=== PATIENT | female | born 1945 | race Caucasian/White ===

== ENCOUNTER 2022-09-28 17:49 | Inpatient (IN) | payer OTHER ==
[~2022-09-28] VITALS: Ht 152.4 cm; Wt 59.8 kg
[2022-09-28] VITALS (19 sets, daily range): BP systolic 101–129; BP diastolic 52–75; PULSE 93–120; RESP 8–22; TEMP 96.7–98.6; O2SAT 95–100
[2022-09-28] MEDS ORDERED: ANGIOMAX 250 MG VIAL IV ONE (17:59)
[2022-09-28] MEDS ORDERED: VERAPAMIL 2.5MG/ML INJ 2ML VIAL IV ONE (17:59)
[2022-09-28] MEDS ORDERED: LIDOCAINE 1% HCL (LOCAL ANESTH.) INJ 20ML MDV ONE (17:59)
[2022-09-28] MEDS ORDERED: fentaNYL CITRATE 100 MCG/2 ML VL ONE (17:59)
[2022-09-28] MEDS ORDERED: SODIUM CHL 0.9% 50 ML ONE (18:00)
[2022-09-28] MEDS ORDERED: MIDAZOLAM HCL 2MG/2ML 2ml VIAL (1mg/ml) ONE (18:00)
[2022-09-28] MEDS ORDERED: LIDOCAINE 2%HCL (LOCAL ANESTH.) INJ 20ML MDV ONE (18:01)
[2022-09-28] MEDS ORDERED: IODIXANOL 320MG/ML 100ML BTL IV ONE ×3 (18:01→19:02)
[2022-09-28] MEDS ORDERED: NOREPINEPHRINE 8 MG/250ML KIT 0 ML IV ONE (18:09)
[2022-09-28] MEDS ORDERED: NOREPINEPHRINE 8 MG/250ML KIT 250 ML IV ONE (18:10)
[2022-09-28] MEDS ORDERED: NOREPINEPHRINE 8 MG/250ML KIT 250 ML IV SCH ×2 (18:15→18:30)
[2022-09-28] MEDS ORDERED: SODIUM CHLORIDE 0.9% 1,000 ML IV ONE (18:15)
[2022-09-28] MEDS: MIDAZOLAM DRIP 50 mg/50mL 50 ML IV SCH (18:18)
[2022-09-28] MEDS ORDERED: MIDAZOLAM DRIP 50 mg/50mL 50 ML IV ONE (18:20)
[2022-09-28 18:38] LABS: Basophils # (auto) 0.1 10 ^3/uL (0-0.2); Basophils % (auto) 0.4 % (0.0-2.0); Eosinophils # (auto) 0.1 10 ^3/uL (0-0.8); Eosinophils % (auto) 0.6 % (0.0-7.0); Hematocrit 31.2 % (36.0-46.0); Hemoglobin 10.4 g/dL (12.2-16.2); Lymphocytes # (auto) 5.2 10 ^3/uL (0.4-5.4); Lymphocytes % (auto) 30.6 % (10.0-50.0); Mean Corpuscular Hemoglobin 29.1 pg (28.0-32.0); Mean Corpuscular Hgb Conc. 33.5 g/dL (32.0-36.0); Mean Corpuscular Volume 86.8 fL (80.0-100.0); Monocytes # (auto) 0.9 10 ^3/uL (0-1.3); Monocytes % (auto) 5.1 % (0.0-12.0); Neutrophils # (auto) 10.8 10 ^3/uL (1.6-8.6); Neutrophils % (auto) 63.3 % (37.0-80.0); Nucleated Red Blood Cells % 0.1 %; Red Blood Cells 3.59 10^6/uL (4.0-5.20); Red Cell Distribution Width 12.9 % (11.8-14.3)
[2022-09-28] MEDS ORDERED: HEPARIN SODIUM (PORCINE) 5000 UNITS/ML 1ML VIAL ONE ×2 (18:50→19:05)
[2022-09-28] MEDS ORDERED: SODIUM BICARBONATE 8.4 % INJ 50ML VIAL IV ONE (19:00)
[2022-09-28 19:03] LABS: Albumin 2.7 g/dL (3.4-5.0); Calcium 7.9 mg/dL (8.5-10.1)
[2022-09-28 19:07] LABS: BUN/Creatinine Ratio 23.8 (10.0-20.0); Bilirubin, Total 0.4 mg/dL (0.2-1.0); Total Protein 5.8 g/dL (6.4-8.2)
[2022-09-28 19:10] LABS: INR 1.3 (0.9-1.15); Partial Thromboplastin Time 27.6 SEC (24.5-34.5)
[2022-09-28] MEDS ORDERED: TICAGRELOR 90 MG TAB ONE (19:39)
[2022-09-28] MEDS ORDERED: MORPHINE SULFATE INJ 2 MG/ml SYRG IV PRN (19:45)
[2022-09-28] MEDS ORDERED: NITROGLYCERIN 0.4 MG SL TAB SL PRN (19:45)
[2022-09-28] MEDS ORDERED: fentaNYL Drip 2500mCg/250mlNS 250 ML IV ONE (20:48)
[2022-09-28] MEDS: POTASSIUM CHLORIDE 40 MEQ in SOD CHL 0.45% 1,000 ML IV SCH (20:59)
[2022-09-28] MEDS: fentaNYL Drip 2500mCg/250mlNS 250 ML IV SCH (21:00)
[2022-09-28] MEDS ORDERED: GABA-1250 PO (22:44)
[2022-09-28] MEDS ORDERED: LOSA50TA46 PO (22:44)
[2022-09-28] MEDS ORDERED: GLIP5TAB12 PO (22:44)
[2022-09-28] MEDS ORDERED: SIMV40TA18 PO (22:44)
[2022-09-29] VITALS (104 sets, daily range): BP systolic 76–196; BP diastolic 23–160; PULSE 60–110; RESP 9–23; TEMP 97–98.6; O2SAT 69–100
[2022-09-29] MEDS ORDERED: MEROPENEM 1GM IVPB 100 ML IV SCH
[2022-09-29] MEDS ORDERED: SODIUM CHLORIDE 0.9% 500 ML IV ONE (01:15)
[2022-09-29] MEDS ORDERED: SODIUM CHLORIDE 0.9% 2,000 ML IV ONE (01:30)
[2022-09-29 02:19] LABS: Hematocrit 34.1 % (36.0-46.0); Hemoglobin 11.2 g/dL (12.2-16.2); Mean Corpuscular Hemoglobin 29.6 pg (28.0-32.0); Mean Corpuscular Hgb Conc. 32.8 g/dL (32.0-36.0); Mean Corpuscular Volume 90.4 fL (80.0-100.0); Red Blood Cells 3.77 10^6/uL (4.0-5.20); Red Cell Distribution Width 13.4 % (11.8-14.3); White Blood Cell 25.7 10^3/uL (4.4-10.8)
[2022-09-29 02:33] LABS: BUN/Creatinine Ratio 28.9 (10.0-20.0); Calcium 7.5 mg/dL (8.5-10.1); Potassium 3.5 mmol/L (3.5-5.1)
[2022-09-29 02:37] LABS: INR 1.23 (0.9-1.15)
[2022-09-29 02:43] LABS: Basophils % (manual) 0 (0.0-2.0); Blast Cells 0; Eosinophils % (manual) 0 (0-7); Metamyelocytes % 0; Myelocytes % 0; Promyelocytes % 0; Reactive Lymphocytes 0
[2022-09-29 03:28] LABS: Band Neutrophils % (manual) 15; Lymphocytes % (manual) 3 (10.0-50.0); Monocytes % (manual) 3 (0-12)
[2022-09-29 08:22] LABS: Basophils # (auto) 0 10 ^3/uL (0-0.2); Basophils % (auto) 0.1 % (0.0-2.0); Eosinophils # (auto) 0 10 ^3/uL (0-0.8); Hematocrit 33.2 % (36.0-46.0); Hemoglobin 10.8 g/dL (12.2-16.2); Lymphocytes # (auto) 0.9 10 ^3/uL (0.4-5.4); Lymphocytes % (auto) 4.9 % (10.0-50.0); Mean Corpuscular Hemoglobin 29.5 pg (28.0-32.0); Mean Corpuscular Hgb Conc. 32.6 g/dL (32.0-36.0); Mean Corpuscular Volume 90.7 fL (80.0-100.0); Monocytes # (auto) 1.3 10 ^3/uL (0-1.3); Monocytes % (auto) 6.8 % (0.0-12.0); Neutrophils # (auto) 17.2 10 ^3/uL (1.6-8.6); Neutrophils % (auto) 88.2 % (37.0-80.0); Red Blood Cells 3.66 10^6/uL (4.0-5.20); Red Cell Distribution Width 13.4 % (11.8-14.3); White Blood Cell 19.5 10^3/uL (4.4-10.8)
[2022-09-29 09:18] LABS: Potassium 3.7 mmol/L (3.5-5.1)
[2022-09-29 09:28] LABS: Albumin 2.8 g/dL (3.4-5.0); Bilirubin, Total 0.6 mg/dL (0.2-1.0); Calcium 7.7 mg/dL (8.5-10.1); Total Protein 5.6 g/dL (6.4-8.2)
[2022-09-29] MEDS: PHENYLEPHRINE IV 250 ML IV SCH ×2 (09:50→17:53)
[2022-09-29] MEDS: TICAGRELOR 90 MG TAB PO SCH ×3 (10:00→22:29)
[2022-09-29] MEDS ORDERED: VANCOMYCIN PER PHARMACY 0 MG IV SCH (10:15)
[2022-09-29] MEDS ORDERED: VANCOMYCIN 1GM/250ML 250 ML IV ONE (10:30)
[2022-09-29] MEDS: ASPirin 81 mg TAB PO SCH (11:19)
[2022-09-29] MEDS ORDERED: MEROPENEM 1GM IVPB 100 ML IV ONE (12:00)
[2022-09-29] MEDS: VASOPRESSIN 20 UNITS in SODIUM CHL 0.9% 99 ML IV SCH ×2 (12:37→23:44)
[2022-09-29] MEDS ORDERED: EPINEPHrine HCL 1 MG/10 ML SYRG IV ONE (12:54)
[2022-09-29] MEDS ORDERED: SODIUM BICARBONATE 8.4% INJ 50ML SYRINGE IV ONE (12:54)
[2022-09-29] MEDS ORDERED: D5W 5% 100 ML BAG IV ONE (12:54)
[2022-09-29] MEDS ORDERED: DEXTROSE (50%) 50ML SYRG IV ONE (12:54)
[2022-09-29] MEDS: POTASSIUM CHLORIDE 40 MEQ in SOD CHL 0.45% 1,000 ML IV SCH ×2 (16:31→16:54)
[2022-09-29] MEDS ORDERED: NOREPINEPHRINE 8 MG/250ML KIT 250 ML IV SCH (17:15)
[2022-09-29] MEDS ORDERED: DEXTROSE (50%) 50ML SYRG IV PRN (17:15)
[2022-09-29] MEDS: ACCU-CHEK COMFORT CURVE STRIP VI SCH (17:51)
[2022-09-29] MEDS: InsuLIN REG 1unit/0.01ml Soln (100units/ml) SC SCH (17:52)
[2022-09-29] MEDS: MIDAZOLAM DRIP 50 mg/50mL 50 ML IV SCH (19:00)
[2022-09-29] MEDS: fentaNYL Drip 2500mCg/250mlNS 250 ML IV SCH (20:45)
[2022-09-29 22:43] LABS: Folate (Folic Acid) 16.33 ng/mL (5.38-24)
[2022-09-30] VITALS (88 sets, daily range): BP systolic 48–172; BP diastolic 26–142; PULSE 61–130; RESP 10–33; TEMP 98.6–99.6; O2SAT 90–100
[2022-09-30] MEDS: MEROPENEM 1GM IVPB 100 ML IV SCH ×2 (00:24→14:41)
[2022-09-30] MEDS: ACCU-CHEK COMFORT CURVE STRIP VI SCH ×4 (00:24→18:11)
[2022-09-30] MEDS: InsuLIN REG 1unit/0.01ml Soln (100units/ml) SC SCH ×4 (00:32→18:12)
[2022-09-30] MEDS: PHENYLEPHRINE IV 250 ML IV SCH ×2 (02:30→10:50)
[2022-09-30] MEDS: POTASSIUM CHLORIDE 40 MEQ in SOD CHL 0.45% 1,000 ML IV SCH ×2 (03:43→15:16)
[2022-09-30 04:39] LABS: Basophils # (auto) 0 10 ^3/uL (0-0.2); Basophils % (auto) 0.2 % (0.0-2.0); Eosinophils # (auto) 0 10 ^3/uL (0-0.8); Eosinophils % (auto) 0.1 % (0.0-7.0); Hematocrit 27.7 % (36.0-46.0); Hemoglobin 9.4 g/dL (12.2-16.2); Lymphocytes # (auto) 1.7 10 ^3/uL (0.4-5.4); Lymphocytes % (auto) 9.4 % (10.0-50.0); Mean Corpuscular Hemoglobin 30.1 pg (28.0-32.0); Mean Corpuscular Volume 88.6 fL (80.0-100.0); Monocytes # (auto) 1.5 10 ^3/uL (0-1.3); Monocytes % (auto) 8.8 % (0.0-12.0); Neutrophils # (auto) 14.4 10 ^3/uL (1.6-8.6); Neutrophils % (auto) 81.5 % (37.0-80.0); Red Blood Cells 3.12 10^6/uL (4.0-5.20); Red Cell Distribution Width 13.7 % (11.8-14.3); White Blood Cell 17.7 10^3/uL (4.4-10.8)
[2022-09-30 04:43] LABS: Albumin 2.5 g/dL (3.4-5.0); Calcium 7.5 mg/dL (8.5-10.1); Potassium 3.9 mmol/L (3.5-5.1)
[2022-09-30 04:47] LABS: Bilirubin, Total 0.6 mg/dL (0.2-1.0); Total Protein 5.7 g/dL (6.4-8.2)
[2022-09-30] MEDS ORDERED: ONDANSETRON HCL 4 MG/2 ML VIAL ONE (05:37)
[2022-09-30] MEDS: ONDANSETRON HCL 4 MG/2 ML VIAL IV PRN ×3 (06:52→19:26)
[2022-09-30] MEDS ORDERED: IOHEXOL 350 MG/ML 100ML IJ ONE (07:41)
[2022-09-30] MEDS: TICAGRELOR 90 MG TAB PO SCH ×4 (10:00→22:30)
[2022-09-30] MEDS: ASPirin 81 mg TAB PO SCH (10:00)
[2022-09-30] MEDS: METOCLOPRAMIDE HCL 5MG/ml INJ 2ml VIAL IV SCH ×3 (11:13→22:32)
[2022-09-30] MEDS ORDERED: hydrALAZINE HCL 20 MG/ML VL IV PRN (13:15)
[2022-09-30] MEDS: VANCOMYCIN 1GM/250ML 250 ML IV SCH (13:45)
[2022-09-30] MEDS: LORazepam 2MG/ML-1ML VIAL IV PRN ×2 (16:56→23:12)
[2022-09-30] MEDS ORDERED: NOREPINEPHRINE 8 MG/250ML KIT 250 ML IV SCH (18:00)
[2022-09-30] MEDS: NOREPINEPHRINE 8 MG/250ML KIT 250 ML IV SCH (18:00)
[2022-09-30] MEDS: METOPROLOL TARTRATE 25 MG TAB PO SCH (22:00)
[2022-09-30] MEDS: CEFEPIME 2GM/50ML NS 50 ML IV SCH (22:49)
[2022-09-30] MEDS: POTASSIUM CHL 20MEQ/100ML 100 ML IV SCH (22:49)
[2022-09-30] MEDS ORDERED: SOD CHL 0.45% 1,000 ML IV SCH (23:00)
[2022-09-30] MEDS ORDERED: CYANOCOBALAMIN (B-12) 1000 MCG/1 ML VIAL IM ONE (23:00)
[2022-10-01] VITALS (99 sets, daily range): BP systolic 62–180; BP diastolic 27–117; PULSE 66–123; RESP 8–28; TEMP 97.4–97.8; O2SAT 75–100
[2022-10-01] MEDS: InsuLIN REG 1unit/0.01ml Soln (100units/ml) SC SCH ×4 (00:23→17:44)
[2022-10-01] MEDS: ACCU-CHEK COMFORT CURVE STRIP VI SCH ×4 (00:29→17:37)
[2022-10-01] MEDS: NOREPINEPHRINE 8 MG/250ML KIT 250 ML IV SCH ×2 (03:07→19:17)
[2022-10-01] MEDS: ONDANSETRON HCL 4 MG/2 ML VIAL IV PRN (03:40)
[2022-10-01 03:57] LABS: Basophils # (auto) 0 10 ^3/uL (0-0.2); Basophils % (auto) 0.2 % (0.0-2.0); Eosinophils # (auto) 0 10 ^3/uL (0-0.8); Eosinophils % (auto) 0.1 % (0.0-7.0); Hematocrit 27.8 % (36.0-46.0); Hemoglobin 9.2 g/dL (12.2-16.2); Lymphocytes # (auto) 1.1 10 ^3/uL (0.4-5.4); Lymphocytes % (auto) 5.9 % (10.0-50.0); Mean Corpuscular Hemoglobin 29.4 pg (28.0-32.0); Mean Corpuscular Hgb Conc. 33.2 g/dL (32.0-36.0); Mean Corpuscular Volume 88.4 fL (80.0-100.0); Monocytes # (auto) 1.3 10 ^3/uL (0-1.3); Monocytes % (auto) 6.9 % (0.0-12.0); Neutrophils # (auto) 15.9 10 ^3/uL (1.6-8.6); Neutrophils % (auto) 86.9 % (37.0-80.0); Red Blood Cells 3.14 10^6/uL (4.0-5.20); Red Cell Distribution Width 13.5 % (11.8-14.3); White Blood Cell 18.3 10^3/uL (4.4-10.8)
[2022-10-01] MEDS: POTASSIUM CHL 20MEQ/100ML 100 ML IV SCH (04:42)
[2022-10-01] MEDS: METOCLOPRAMIDE HCL 5MG/ml INJ 2ml VIAL IV SCH ×3 (06:29→21:37)
[2022-10-01] MEDS: SODIUM CHLORIDE 0.9% 1,000 ML IV SCH (08:15)
[2022-10-01 08:46] LABS: Basophils # (auto) 0 10 ^3/uL (0-0.2); Basophils % (auto) 0.2 % (0.0-2.0); Eosinophils # (auto) 0 10 ^3/uL (0-0.8); Eosinophils % (auto) 0.1 % (0.0-7.0); Hematocrit 28.4 % (36.0-46.0); Hemoglobin 9.4 g/dL (12.2-16.2); Lymphocytes # (auto) 1.1 10 ^3/uL (0.4-5.4); Lymphocytes % (auto) 6.3 % (10.0-50.0); Mean Corpuscular Hemoglobin 29.5 pg (28.0-32.0); Mean Corpuscular Hgb Conc. 33.1 g/dL (32.0-36.0); Monocytes # (auto) 1.2 10 ^3/uL (0-1.3); Monocytes % (auto) 7.2 % (0.0-12.0); Neutrophils # (auto) 14.4 10 ^3/uL (1.6-8.6); Neutrophils % (auto) 86.2 % (37.0-80.0); Nucleated Red Blood Cells % 0.1 %; Red Blood Cells 3.19 10^6/uL (4.0-5.20); Red Cell Distribution Width 13.2 % (11.8-14.3); White Blood Cell 16.7 10^3/uL (4.4-10.8)
[2022-10-01] MEDS ORDERED: methylPREDNISolone SOD SUCC 125 MG/2 ML VL ONE (08:47)
[2022-10-01] MEDS ORDERED: ANGIOMAX 250 MG VIAL IV ONE (08:47)
[2022-10-01] MEDS ORDERED: fentaNYL CITRATE 100 MCG/2 ML VL ONE (08:48)
[2022-10-01] MEDS ORDERED: diphenhdrAMINE HCL 50 MG/1 ML VL ONE (08:48)
[2022-10-01] MEDS ORDERED: HEPARIN SODIUM (PORCINE) 5000 UNITS/ML 1ML VIAL ONE (08:48)
[2022-10-01] MEDS ORDERED: VERAPAMIL 2.5MG/ML INJ 2ML VIAL IV ONE (08:48)
[2022-10-01] MEDS ORDERED: MIDAZOLAM HCL 2MG/2ML 2ml VIAL (1mg/ml) ONE (08:49)
[2022-10-01] MEDS ORDERED: SODIUM CHL 0.9% 50 ML ONE (08:49)
[2022-10-01] MEDS ORDERED: IODIXANOL 320MG/ML 100ML BTL IV ONE (08:49)
[2022-10-01] MEDS ORDERED: FAMOTIDINE (10MG/ML) 2ML VL IV ONE (08:49)
[2022-10-01] MEDS ORDERED: LIDOCAINE 2%HCL (LOCAL ANESTH.) INJ 10ml MDV ONE (08:49)
[2022-10-01 08:57] LABS: Albumin 2.7 g/dL (3.4-5.0); Calcium 8.5 mg/dL (8.5-10.1); Potassium 4.9 mmol/L (3.5-5.1)
[2022-10-01 08:59] LABS: BUN/Creatinine Ratio 14.8 (10.0-20.0); Bilirubin, Total 0.9 mg/dL (0.2-1.0); Total Protein 6.2 g/dL (6.4-8.2)
[2022-10-01 09:00] LABS: INR 1.24 (0.9-1.15); Partial Thromboplastin Time 32.1 SEC (24.5-34.5)
[2022-10-01] MEDS ORDERED: POTASSIUM CHLORIDE 40 MEQ in SOD CHL 0.45% 1,000 ML IV SCH (09:00)
[2022-10-01] MEDS: ASPirin 81 mg TAB PO SCH (10:00)
[2022-10-01] MEDS: TICAGRELOR 90 MG TAB PO SCH ×2 (10:00→21:38)
[2022-10-01] MEDS ORDERED: ASPirin 325 MG TAB ONE (10:11)
[2022-10-01] MEDS ORDERED: TICAGRELOR 90 MG TAB ONE (10:11)
[2022-10-01] MEDS: METOPROLOL TARTRATE 25 MG TAB PO SCH ×2 (11:31→21:38)
[2022-10-01] MEDS: CEFEPIME 2GM/50ML NS 50 ML IV SCH ×2 (11:32→21:38)
[2022-10-01] MEDS: PANTOPRAZOLE 40 MG/10 ML VIAL INJ IV SCH (11:44)
[2022-10-01 12:09] LABS: Basophils # (auto) 0 10 ^3/uL (0-0.2); Basophils % (auto) 0.2 % (0.0-2.0); Eosinophils # (auto) 0 10 ^3/uL (0-0.8); Eosinophils % (auto) 0.1 % (0.0-7.0); Hematocrit 28.6 % (36.0-46.0); Hemoglobin 9.4 g/dL (12.2-16.2); Lymphocytes # (auto) 1.2 10 ^3/uL (0.4-5.4); Lymphocytes % (auto) 7.6 % (10.0-50.0); Mean Corpuscular Hemoglobin 29.4 pg (28.0-32.0); Mean Corpuscular Hgb Conc. 32.7 g/dL (32.0-36.0); Mean Corpuscular Volume 89.9 fL (80.0-100.0); Monocytes % (auto) 6.8 % (0.0-12.0); Neutrophils # (auto) 12.9 10 ^3/uL (1.6-8.6); Neutrophils % (auto) 85.3 % (37.0-80.0); Red Blood Cells 3.19 10^6/uL (4.0-5.20); Red Cell Distribution Width 13.4 % (11.8-14.3); White Blood Cell 15.2 10^3/uL (4.4-10.8)
[2022-10-01 12:32] LABS: Albumin 2.6 g/dL (3.4-5.0); BUN/Creatinine Ratio 15.4 (10.0-20.0); Calcium 8.3 mg/dL (8.5-10.1); Potassium 4.4 mmol/L (3.5-5.1)
[2022-10-01 12:40] LABS: Bilirubin, Total 0.9 mg/dL (0.2-1.0); Total Protein 5.9 g/dL (6.4-8.2)
[2022-10-01] MEDS: VANCOMYCIN 1GM/250ML 250 ML IV SCH (12:55)
[2022-10-01] MEDS ORDERED: HEPARIN DRIP/D5W 100UNITS/ML 250 ML IV SCH (16:30)
[2022-10-01] MEDS: LORazepam 2MG/ML-1ML VIAL IV PRN (20:54)
[2022-10-02] VITALS (98 sets, daily range): BP systolic 57–158; BP diastolic 21–109; PULSE 76–134; RESP 9–26; TEMP 98–99.3; O2SAT 93–100
[2022-10-02] MEDS: ACCU-CHEK COMFORT CURVE STRIP VI SCH ×4 (00:31→17:01)
[2022-10-02] MEDS ORDERED: HEPARIN DRIP/D5W 100UNITS/ML 250 ML IV SCH ×2 (02:00→10:15)
[2022-10-02 04:00] LABS: Basophils # (auto) 0 10 ^3/uL (0-0.2); Basophils % (auto) 0.3 % (0.0-2.0); Eosinophils # (auto) 0 10 ^3/uL (0-0.8); Eosinophils % (auto) 0.2 % (0.0-7.0); Hematocrit 29.2 % (36.0-46.0); Hemoglobin 9.8 g/dL (12.2-16.2); Lymphocytes # (auto) 1.2 10 ^3/uL (0.4-5.4); Lymphocytes % (auto) 8.8 % (10.0-50.0); Mean Corpuscular Hemoglobin 29.7 pg (28.0-32.0); Mean Corpuscular Hgb Conc. 33.5 g/dL (32.0-36.0); Mean Corpuscular Volume 88.6 fL (80.0-100.0); Monocytes # (auto) 1.1 10 ^3/uL (0-1.3); Neutrophils # (auto) 11.6 10 ^3/uL (1.6-8.6); Neutrophils % (auto) 82.7 % (37.0-80.0); Red Blood Cells 3.29 10^6/uL (4.0-5.20)
[2022-10-02 04:17] LABS: Potassium 3.6 mmol/L (3.5-5.1)
[2022-10-02 04:23] LABS: BUN/Creatinine Ratio 19.6 (10.0-20.0)
[2022-10-02] MEDS: SODIUM CHLORIDE 0.9% 1,000 ML IV SCH (05:11)
[2022-10-02] MEDS: METOCLOPRAMIDE HCL 5MG/ml INJ 2ml VIAL IV SCH ×3 (05:35→21:26)
[2022-10-02] MEDS: InsuLIN REG 1unit/0.01ml Soln (100units/ml) SC SCH ×4 (05:40→17:05)
[2022-10-02 09:09] LABS: INR 1.3 (0.9-1.15)
[2022-10-02 09:12] LABS: Partial Thromboplastin Time 129.8 SEC (24.5-34.5)
[2022-10-02] MEDS: TICAGRELOR 90 MG TAB PO SCH ×2 (10:35→21:27)
[2022-10-02] MEDS: cefTRIAXone 1GM/50ML D5W 50 ML IV SCH (10:35)
[2022-10-02] MEDS: METOPROLOL TARTRATE 25 MG TAB PO SCH ×2 (10:35→21:27)
[2022-10-02] MEDS: ASPirin 81 mg TAB PO SCH (10:35)
[2022-10-02] MEDS: PANTOPRAZOLE 40 MG/10 ML VIAL INJ IV SCH (10:47)
[2022-10-02] MEDS: POTASSIUM CHL 20MEQ/100ML 100 ML IV SCH ×2 (12:02→14:22)
[2022-10-02] MEDS: VANCOMYCIN 1GM/250ML 250 ML IV SCH (12:26)
[2022-10-02] MEDS: ENOXAPARIN SOD 80 MG/0.8ML SYRINGE SC SCH ×2 (13:19→21:26)
[2022-10-02] MEDS: LEVALBUTEROL HCL 1.25 MG/3 ML NEB NEB SCH (18:57)
[2022-10-02] MEDS: LORazepam 2MG/ML-1ML VIAL IV PRN (21:26)
[2022-10-02] MEDS: ATORVASTATIN 20 MG TAB PO SCH (21:27)
[2022-10-03] VITALS (100 sets, daily range): BP systolic 71–164; BP diastolic 30–101; PULSE 79–125; RESP 10–28; TEMP 97.7–98.8; O2SAT 84–100
[2022-10-03] MEDS: ACCU-CHEK COMFORT CURVE STRIP VI SCH ×5 (00:16→23:32)
[2022-10-03] MEDS: InsuLIN REG 1unit/0.01ml Soln (100units/ml) SC SCH ×5 (00:17→23:38)
[2022-10-03] MEDS: LEVALBUTEROL HCL 1.25 MG/3 ML NEB NEB SCH ×4 (00:30→18:59)
[2022-10-03] MEDS: NOREPINEPHRINE 8 MG/250ML KIT 250 ML IV SCH ×2 (01:38→10:58)
[2022-10-03] MEDS ORDERED: VANCOMYCIN 1GM/250ML 250 ML IV SCH (02:00)
[2022-10-03 04:43] LABS: Basophils # (auto) 0.1 10 ^3/uL (0-0.2); Basophils % (auto) 0.4 % (0.0-2.0); Eosinophils # (auto) 0.1 10 ^3/uL (0-0.8); Eosinophils % (auto) 0.5 % (0.0-7.0); Hematocrit 27.6 % (36.0-46.0); Hemoglobin 9.3 g/dL (12.2-16.2); Lymphocytes # (auto) 1.3 10 ^3/uL (0.4-5.4); Lymphocytes % (auto) 8.8 % (10.0-50.0); Mean Corpuscular Hemoglobin 29.8 pg (28.0-32.0); Mean Corpuscular Hgb Conc. 33.5 g/dL (32.0-36.0); Mean Corpuscular Volume 88.9 fL (80.0-100.0); Monocytes # (auto) 1.5 10 ^3/uL (0-1.3); Monocytes % (auto) 10.4 % (0.0-12.0); Neutrophils # (auto) 11.6 10 ^3/uL (1.6-8.6); Neutrophils % (auto) 79.9 % (37.0-80.0); Red Blood Cells 3.11 10^6/uL (4.0-5.20); Red Cell Distribution Width 13.1 % (11.8-14.3); White Blood Cell 14.5 10^3/uL (4.4-10.8)
[2022-10-03 04:52] LABS: BUN/Creatinine Ratio 18.6 (10.0-20.0); Potassium 3.7 mmol/L (3.5-5.1)
[2022-10-03] MEDS: METOCLOPRAMIDE HCL 5MG/ml INJ 2ml VIAL IV SCH ×3 (06:07→21:55)
[2022-10-03] MEDS ORDERED: NOREPINEPHRINE 8 MG/250ML KIT 250 ML IV ONE (08:11)
[2022-10-03] MEDS: cefTRIAXone 1GM/50ML D5W 50 ML IV SCH (08:24)
[2022-10-03] MEDS: METOPROLOL TARTRATE 25 MG TAB PO SCH ×2 (10:00→21:56)
[2022-10-03] MEDS: TICAGRELOR 90 MG TAB PO SCH ×2 (10:56→21:55)
[2022-10-03] MEDS: PANTOPRAZOLE 40 MG/10 ML VIAL INJ IV SCH (10:56)
[2022-10-03] MEDS: ASPirin 81 mg TAB PO SCH (10:56)
[2022-10-03] MEDS: ENOXAPARIN SOD 80 MG/0.8ML SYRINGE SC SCH ×2 (10:56→21:54)
[2022-10-03] MEDS: ACETAMINOPHEN 500 MG TAB PO PRN (18:27)
[2022-10-03 19:03] LABS: Urine Bacteria FEW /hpf (None Seen); Urine Blood 2+ /uL (Negative); Urine Mucus FEW (None Seen); Urine Specific Gravity 1.015 (1.001-1.035); Urine WBC 3 /hpf (0 - 5)
[2022-10-03 19:19] LABS: Alcohol, Urine < 3.0 mg/dL (0-10); Amphetamine Screen, Urine NEGATIVE (NEGATIVE); Barbiturate Scree,Urine NEGATIVE (NEGATIVE); Benzodiazephine Screen, Urine POSITIVE (NEGATIVE); Cannabinoid Screen, Urine NEGATIVE (NEGATIVE); Cocaine Screen, Urine NEGATIVE (NEGATIVE); Opiate Scree,Urine NEGATIVE (NEGATIVE); Phencyclidine Screen, Urine NEGATIVE (NEGATIVE)
[2022-10-03] MEDS: ATORVASTATIN 20 MG TAB PO SCH (21:55)
[2022-10-04] VITALS (102 sets, daily range): BP systolic 65–147; BP diastolic 26–125; PULSE 73–133; RESP 11–26; TEMP 96.8–98.6; O2SAT 92–100
[2022-10-04] MEDS: LEVALBUTEROL HCL 1.25 MG/3 ML NEB NEB SCH ×4 (00:18→19:02)
[2022-10-04 04:53] LABS: Basophils # (auto) 0 10 ^3/uL (0-0.2); Basophils % (auto) 0.2 % (0.0-2.0); Eosinophils # (auto) 0.1 10 ^3/uL (0-0.8); Eosinophils % (auto) 0.8 % (0.0-7.0); Hematocrit 26.8 % (36.0-46.0); Hemoglobin 9.3 g/dL (12.2-16.2); Lymphocytes # (auto) 0.8 10 ^3/uL (0.4-5.4); Lymphocytes % (auto) 6.4 % (10.0-50.0); Mean Corpuscular Hemoglobin 30.6 pg (28.0-32.0); Mean Corpuscular Hgb Conc. 34.5 g/dL (32.0-36.0); Mean Corpuscular Volume 88.7 fL (80.0-100.0); Monocytes # (auto) 1.5 10 ^3/uL (0-1.3); Monocytes % (auto) 11.9 % (0.0-12.0); Neutrophils # (auto) 10.3 10 ^3/uL (1.6-8.6); Neutrophils % (auto) 80.7 % (37.0-80.0); Red Blood Cells 3.03 10^6/uL (4.0-5.20); Red Cell Distribution Width 12.8 % (11.8-14.3); White Blood Cell 12.7 10^3/uL (4.4-10.8)
[2022-10-04 05:01] LABS: Albumin 2.3 g/dL (3.4-5.0); Calcium 8.2 mg/dL (8.5-10.1); Potassium 3.4 mmol/L (3.5-5.1)
[2022-10-04 05:03] LABS: INR 1.37 (0.9-1.15); Partial Thromboplastin Time 47.5 SEC (24.5-34.5)
[2022-10-04 05:05] LABS: BUN/Creatinine Ratio 10.9 (10.0-20.0); Bilirubin, Total 1.1 mg/dL (0.2-1.0)
[2022-10-04] MEDS: ACCU-CHEK COMFORT CURVE STRIP VI SCH ×4 (05:57→23:22)
[2022-10-04] MEDS: METOCLOPRAMIDE HCL 5MG/ml INJ 2ml VIAL IV SCH ×3 (05:57→21:20)
[2022-10-04] MEDS: InsuLIN REG 1unit/0.01ml Soln (100units/ml) SC SCH ×4 (06:04→23:22)
[2022-10-04] MEDS: NOREPINEPHRINE 8 MG/250ML KIT 250 ML IV SCH (08:15)
[2022-10-04] MEDS: cefTRIAXone 1GM/50ML D5W 50 ML IV SCH (08:51)
[2022-10-04] MEDS: METOPROLOL TARTRATE 25 MG TAB PO SCH ×2 (08:52→21:21)
[2022-10-04] MEDS: PANTOPRAZOLE 40 MG/10 ML VIAL INJ IV SCH (08:52)
[2022-10-04] MEDS: ENOXAPARIN SOD 80 MG/0.8ML SYRINGE SC SCH ×2 (08:52→21:20)
[2022-10-04] MEDS: ASPirin 81 mg TAB PO SCH (08:52)
[2022-10-04] MEDS: TICAGRELOR 90 MG TAB PO SCH ×2 (08:52→21:21)
[2022-10-04] MEDS ORDERED: LORazepam 2MG/ML-1ML VIAL IV PRN (10:00)
[2022-10-04] MEDS: MIDODRINE HCL 10 MG TAB PO SCH (18:00)
[2022-10-04] MEDS: LORazepam 2MG/ML-1ML VIAL IV PRN (21:20)
[2022-10-04] MEDS: ATORVASTATIN 20 MG TAB PO SCH (21:21)
[2022-10-05] VITALS (108 sets, daily range): BP systolic 54–146; BP diastolic 22–74; PULSE 56–108; RESP 10–29; TEMP 97.7–98.8; O2SAT 78–100
[2022-10-05] MEDS: LEVALBUTEROL HCL 1.25 MG/3 ML NEB NEB SCH ×4 (00:25→18:38)
[2022-10-05] MEDS: MIDODRINE HCL 10 MG TAB PO SCH ×3 (05:43→18:42)
[2022-10-05] MEDS: InsuLIN REG 1unit/0.01ml Soln (100units/ml) SC SCH ×4 (05:44→23:11)
[2022-10-05] MEDS: ACCU-CHEK COMFORT CURVE STRIP VI SCH ×4 (05:44→23:11)
[2022-10-05] MEDS: METOCLOPRAMIDE HCL 5MG/ml INJ 2ml VIAL IV SCH ×3 (05:59→20:32)
[2022-10-05] MEDS: NOREPINEPHRINE 8 MG/250ML KIT 250 ML IV SCH (08:15)
[2022-10-05] MEDS ORDERED: HALOPERIDOL LACTATE 5 MG/ML INJ VIAL IV PRN (09:30)
[2022-10-05 09:56] LABS: Potassium 3.2 mmol/L (3.5-5.1)
[2022-10-05 10:00] LABS: BUN/Creatinine Ratio 17.5 (10.0-20.0)
[2022-10-05] MEDS: ENOXAPARIN SOD 80 MG/0.8ML SYRINGE SC SCH (10:16)
[2022-10-05] MEDS: cefTRIAXone 1GM/50ML D5W 50 ML IV SCH (10:16)
[2022-10-05] MEDS: PANTOPRAZOLE 40 MG TAB PO SCH (10:16)
[2022-10-05] MEDS: METOPROLOL TARTRATE 25 MG TAB PO SCH ×2 (10:17→20:33)
[2022-10-05] MEDS: TICAGRELOR 90 MG TAB PO SCH ×2 (10:17→18:43)
[2022-10-05] MEDS ORDERED: POTASSIUM CHLORIDE 60 MEQ, LIDOCAINE 1% (LOCAL ANESTH.) 6 ML in SODIUM CHL 0.9% 500 ML IV ONE (14:45)
[2022-10-05] MEDS ORDERED: OPTISON 3ml Vial for INJ IV ONE ×2 (15:12→15:15)
[2022-10-05] MEDS: SACUBITRIL-VALSARTAN 24mg/26mg TAB PO SCH (20:33)
[2022-10-05] MEDS: ATORVASTATIN 20 MG TAB PO SCH (20:33)
[2022-10-06] VITALS (81 sets, daily range): BP systolic 78–133; BP diastolic 25–68; PULSE 71–118; RESP 8–25; TEMP 97.8–99; O2SAT 92–100
[2022-10-06] MEDS: LEVALBUTEROL HCL 1.25 MG/3 ML NEB NEB SCH ×4 (01:07→18:18)
[2022-10-06] MEDS: ACCU-CHEK COMFORT CURVE STRIP VI SCH ×4 (05:26→23:45)
[2022-10-06] MEDS: InsuLIN REG 1unit/0.01ml Soln (100units/ml) SC SCH ×4 (05:26→23:49)
[2022-10-06] MEDS: MIDODRINE HCL 10 MG TAB PO SCH ×3 (05:27→18:00)
[2022-10-06] MEDS: METOCLOPRAMIDE HCL 5MG/ml INJ 2ml VIAL IV SCH ×3 (05:27→19:39)
[2022-10-06] MEDS: NOREPINEPHRINE 8 MG/250ML KIT 250 ML IV SCH (08:15)
[2022-10-06] MEDS: ASPirin 81 mg TAB PO SCH (09:53)
[2022-10-06] MEDS: METOPROLOL TARTRATE 25 MG TAB PO SCH ×2 (09:53→19:42)
[2022-10-06] MEDS: TICAGRELOR 90 MG TAB PO SCH ×2 (09:54→19:39)
[2022-10-06] MEDS: SACUBITRIL-VALSARTAN 24mg/26mg TAB PO SCH (09:54)
[2022-10-06] MEDS: ENOXAPARIN SOD 40 MG/0.4 ML SYRINGE SC SCH (09:54)
[2022-10-06] MEDS: PANTOPRAZOLE 40 MG TAB PO SCH (09:54)
[2022-10-06 10:12] LABS: BUN/Creatinine Ratio 15.4 (10.0-20.0); Calcium 8.3 mg/dL (8.5-10.1); Potassium 3.7 mmol/L (3.5-5.1)
[2022-10-06] MEDS: LORazepam 2MG/ML-1ML VIAL IV PRN (17:27)
[2022-10-06] MEDS: ATORVASTATIN 20 MG TAB PO SCH (19:39)
[2022-10-07] VITALS (14 sets, daily range): BP systolic 100–133; BP diastolic 52–65; PULSE 63–113; RESP 17–22; TEMP 97.1–98.4; O2SAT 94–100
[2022-10-07] MEDS: LEVALBUTEROL HCL 1.25 MG/3 ML NEB NEB SCH ×4 (00:34→20:34)
[2022-10-07] MEDS: LORazepam 2MG/ML-1ML VIAL IV PRN (02:57)
[2022-10-07] MEDS: METOCLOPRAMIDE HCL 5MG/ml INJ 2ml VIAL IV SCH ×3 (05:36→21:15)
[2022-10-07] MEDS: MIDODRINE HCL 10 MG TAB PO SCH (05:36)
[2022-10-07] MEDS: ACCU-CHEK COMFORT CURVE STRIP VI SCH ×3 (05:36→17:42)
[2022-10-07] MEDS: InsuLIN REG 1unit/0.01ml Soln (100units/ml) SC SCH ×3 (05:39→17:42)
[2022-10-07] MEDS: ACETAMINOPHEN 500 MG TAB PO PRN (09:44)
[2022-10-07] MEDS: ASPirin 81 mg TAB PO SCH (09:45)
[2022-10-07] MEDS: TICAGRELOR 90 MG TAB PO SCH ×2 (09:45→21:16)
[2022-10-07] MEDS: PANTOPRAZOLE 40 MG TAB PO SCH (09:45)
[2022-10-07] MEDS: METOPROLOL TARTRATE 25 MG TAB PO SCH ×2 (09:46→21:16)
[2022-10-07] MEDS: ENOXAPARIN SOD 40 MG/0.4 ML SYRINGE SC SCH (09:46)
[2022-10-07] MEDS ORDERED: MET25T PO (13:44)
[2022-10-07] MEDS ORDERED: TICA90TA PO (13:44)
[2022-10-07] MEDS ORDERED: ATOR20TA50 PO (13:44)
[2022-10-07] MEDS ORDERED: ASPI-325 PO (13:44)
[2022-10-07] MEDS: ATORVASTATIN 20 MG TAB PO SCH (21:15)
[2022-10-08] VITALS (14 sets, daily range): BP systolic 104–127; BP diastolic 45–67; PULSE 70–97; RESP 12–20; TEMP 97.3–98.2; O2SAT 91–100
[2022-10-08] MEDS: ACCU-CHEK COMFORT CURVE STRIP VI SCH ×5 (00:22→23:44)
[2022-10-08] MEDS: InsuLIN REG 1unit/0.01ml Soln (100units/ml) SC SCH ×5 (00:25→23:56)
[2022-10-08] MEDS: METOCLOPRAMIDE HCL 5MG/ml INJ 2ml VIAL IV SCH ×3 (05:20→21:18)
[2022-10-08] MEDS: LEVALBUTEROL HCL 1.25 MG/3 ML NEB NEB SCH ×4 (07:19→19:12)
[2022-10-08] MEDS: ASPirin 81 mg TAB PO SCH (09:59)
[2022-10-08] MEDS: TICAGRELOR 90 MG TAB PO SCH ×2 (09:59→21:15)
[2022-10-08] MEDS: METOPROLOL TARTRATE 25 MG TAB PO SCH ×2 (09:59→21:19)
[2022-10-08] MEDS: PANTOPRAZOLE 40 MG TAB PO SCH (09:59)
[2022-10-08] MEDS: ENOXAPARIN SOD 40 MG/0.4 ML SYRINGE SC SCH (10:00)
[2022-10-08] MEDS: LORazepam 2MG/ML-1ML VIAL IV PRN (21:17)
[2022-10-08] MEDS: ATORVASTATIN 20 MG TAB PO SCH (21:18)
[2022-10-09] VITALS (16 sets, daily range): BP systolic 113–135; BP diastolic 42–54; PULSE 79–101; RESP 16–18; TEMP 97.6–98.1; O2SAT 95–100
[2022-10-09] MEDS: LEVALBUTEROL HCL 1.25 MG/3 ML NEB NEB SCH ×4 (00:28→19:27)
[2022-10-09] MEDS: InsuLIN REG 1unit/0.01ml Soln (100units/ml) SC SCH ×3 (06:00→18:52)
[2022-10-09] MEDS: ACCU-CHEK COMFORT CURVE STRIP VI SCH ×3 (06:04→18:51)
[2022-10-09] MEDS: METOCLOPRAMIDE HCL 5MG/ml INJ 2ml VIAL IV SCH ×3 (06:04→21:15)
[2022-10-09] MEDS: ASPirin 81 mg TAB PO SCH (09:46)
[2022-10-09] MEDS: TICAGRELOR 90 MG TAB PO SCH ×2 (09:46→21:10)
[2022-10-09] MEDS: ENOXAPARIN SOD 40 MG/0.4 ML SYRINGE SC SCH (09:46)
[2022-10-09] MEDS: PANTOPRAZOLE 40 MG TAB PO SCH (09:46)
[2022-10-09] MEDS: METOPROLOL TARTRATE 25 MG TAB PO SCH ×2 (09:53→21:14)
[2022-10-09] MEDS: ATORVASTATIN 20 MG TAB PO SCH (21:14)
[2022-10-09] MEDS ORDERED: HALOPERIDOL LACTATE 5 MG/ML INJ VIAL IM PRN (21:30)
[2022-10-10] VITALS (15 sets, daily range): BP systolic 79–117; BP diastolic 40–49; PULSE 14–94; RESP 14–75; TEMP 97.5–98.8; O2SAT 95–100
[2022-10-10] MEDS: InsuLIN REG 1unit/0.01ml Soln (100units/ml) SC SCH ×5 (06:00→22:54)
[2022-10-10] MEDS: ACCU-CHEK COMFORT CURVE STRIP VI SCH ×5 (06:24→22:53)
[2022-10-10] MEDS: METOCLOPRAMIDE HCL 5MG/ml INJ 2ml VIAL IV SCH ×3 (06:24→21:40)
[2022-10-10] MEDS: LEVALBUTEROL HCL 1.25 MG/3 ML NEB NEB SCH ×3 (06:41→18:57)
[2022-10-10] MEDS: ASPirin 81 mg TAB PO SCH (09:45)
[2022-10-10] MEDS: TICAGRELOR 90 MG TAB PO SCH ×2 (09:45→21:38)
[2022-10-10] MEDS: PANTOPRAZOLE 40 MG TAB PO SCH (09:45)
[2022-10-10] MEDS: ENOXAPARIN SOD 40 MG/0.4 ML SYRINGE SC SCH (09:48)
[2022-10-10] MEDS: METOPROLOL TARTRATE 25 MG TAB PO SCH ×2 (09:48→21:38)
[2022-10-10] MEDS: ATORVASTATIN 20 MG TAB PO SCH (21:38)
[2022-10-11] VITALS (14 sets, daily range): BP systolic 104–125; BP diastolic 35–61; PULSE 62–96; RESP 16–98; TEMP 97.6–98.3; O2SAT 90–100
[2022-10-11] MEDS: InsuLIN REG 1unit/0.01ml Soln (100units/ml) SC SCH ×3 (06:00→17:50)
[2022-10-11] MEDS: LEVALBUTEROL HCL 1.25 MG/3 ML NEB NEB SCH ×3 (06:16→19:00)
[2022-10-11] MEDS: METOCLOPRAMIDE HCL 5MG/ml INJ 2ml VIAL IV SCH ×3 (06:18→22:04)
[2022-10-11] MEDS: ACCU-CHEK COMFORT CURVE STRIP VI SCH ×3 (06:21→17:45)
[2022-10-11] MEDS: PANTOPRAZOLE 40 MG TAB PO SCH (09:32)
[2022-10-11] MEDS: TICAGRELOR 90 MG TAB PO SCH ×2 (09:32→22:00)
[2022-10-11] MEDS: ASPirin 81 mg TAB PO SCH (09:32)
[2022-10-11] MEDS: ENOXAPARIN SOD 40 MG/0.4 ML SYRINGE SC SCH (09:33)
[2022-10-11] MEDS: METOPROLOL TARTRATE 25 MG TAB PO SCH ×2 (09:36→22:07)
[2022-10-11] MEDS: ATORVASTATIN 20 MG TAB PO SCH (22:08)
[2022-10-12] VITALS (12 sets, daily range): BP systolic 101–119; BP diastolic 44–51; PULSE 65–97; RESP 16–18; TEMP 98–98.3; O2SAT 92–100
[2022-10-12] MEDS: ACCU-CHEK COMFORT CURVE STRIP VI SCH ×4 (01:22→17:06)
[2022-10-12] MEDS: METOCLOPRAMIDE HCL 5MG/ml INJ 2ml VIAL IV SCH ×3 (05:40→22:23)
[2022-10-12] MEDS: LEVALBUTEROL HCL 1.25 MG/3 ML NEB NEB SCH ×4 (05:50→19:06)
[2022-10-12] MEDS: InsuLIN REG 1unit/0.01ml Soln (100units/ml) SC SCH ×4 (05:56→17:06)
[2022-10-12] MEDS: ASPirin 81 mg TAB PO SCH (10:04)
[2022-10-12] MEDS: METOPROLOL TARTRATE 25 MG TAB PO SCH ×2 (10:04→22:24)
[2022-10-12] MEDS: ENOXAPARIN SOD 40 MG/0.4 ML SYRINGE SC SCH (10:05)
[2022-10-12] MEDS: PANTOPRAZOLE 40 MG TAB PO SCH (10:05)
[2022-10-12] MEDS: TICAGRELOR 90 MG TAB PO SCH (10:05)
[2022-10-12] MEDS: ATORVASTATIN 20 MG TAB PO SCH (22:24)
[2022-10-12] MEDS: APIXABAN 5 MG TAB PO SCH (22:24)
[2022-10-13] VITALS (15 sets, daily range): BP systolic 99–138; BP diastolic 34–73; PULSE 66–89; RESP 0–20; TEMP 97.1–98; O2SAT 96–100
[2022-10-13] MEDS: LEVALBUTEROL HCL 1.25 MG/3 ML NEB NEB SCH ×4 (00:51→18:10)
[2022-10-13] MEDS: ACCU-CHEK COMFORT CURVE STRIP VI SCH ×4 (05:47→18:09)
[2022-10-13] MEDS: InsuLIN REG 1unit/0.01ml Soln (100units/ml) SC SCH ×4 (05:48→18:12)
[2022-10-13] MEDS: METOCLOPRAMIDE HCL 5MG/ml INJ 2ml VIAL IV SCH ×3 (05:51→21:41)
[2022-10-13] MEDS: PANTOPRAZOLE 40 MG TAB PO SCH (09:58)
[2022-10-13] MEDS: APIXABAN 5 MG TAB PO SCH ×3 (09:58→22:29)
[2022-10-13] MEDS: CLOPIDOGREL BISULFATE 75 MG TAB PO SCH (09:58)
[2022-10-13] MEDS: METOPROLOL TARTRATE 25 MG TAB PO SCH ×2 (10:00→21:41)
[2022-10-13] MEDS: ATORVASTATIN 20 MG TAB PO SCH (21:40)
[2022-10-13] MEDS: LORazepam 2MG/ML-1ML VIAL IV PRN (22:49)
[2022-10-14] VITALS (20 sets, daily range): BP systolic 116–135; BP diastolic 30–73; PULSE 58–103; RESP 15–18; TEMP 97.6–98.1; O2SAT 94–99
[2022-10-14] MEDS: LEVALBUTEROL HCL 1.25 MG/3 ML NEB NEB SCH ×4 (00:20→18:09)
[2022-10-14] MEDS: InsuLIN REG 1unit/0.01ml Soln (100units/ml) SC SCH ×4 (00:58→17:59)
[2022-10-14] MEDS: ACCU-CHEK COMFORT CURVE STRIP VI SCH ×4 (00:59→17:58)
[2022-10-14] MEDS: METOCLOPRAMIDE HCL 5MG/ml INJ 2ml VIAL IV SCH ×3 (06:50→22:00)
[2022-10-14] MEDS: PANTOPRAZOLE 40 MG TAB PO SCH (10:12)
[2022-10-14] MEDS: METOPROLOL TARTRATE 25 MG TAB PO SCH ×2 (10:12→22:21)
[2022-10-14] MEDS: APIXABAN 5 MG TAB PO SCH ×2 (10:12→22:20)
[2022-10-14] MEDS: CLOPIDOGREL BISULFATE 75 MG TAB PO SCH (10:12)
[2022-10-14] MEDS: ATORVASTATIN 20 MG TAB PO SCH (22:20)
[2022-10-15] VITALS (9 sets, daily range): BP systolic 111; BP diastolic 51; PULSE 70–77; RESP 14–18; TEMP 98.3; O2SAT 97–100
[2022-10-15] MEDS: ACCU-CHEK COMFORT CURVE STRIP VI SCH ×3 (00:04→11:43)
[2022-10-15] MEDS: LEVALBUTEROL HCL 1.25 MG/3 ML NEB NEB SCH ×3 (00:04→12:25)
[2022-10-15] MEDS: InsuLIN REG 1unit/0.01ml Soln (100units/ml) SC SCH ×3 (05:16→11:43)
[2022-10-15] MEDS: METOCLOPRAMIDE HCL 5MG/ml INJ 2ml VIAL IV SCH (05:16)
[2022-10-15] MEDS: METOPROLOL TARTRATE 25 MG TAB PO SCH (10:00)
[2022-10-15] MEDS: PANTOPRAZOLE 40 MG TAB PO SCH (10:12)
[2022-10-15] MEDS: CLOPIDOGREL BISULFATE 75 MG TAB PO SCH (10:12)
[2022-10-15] MEDS: APIXABAN 5 MG TAB PO SCH (10:12)
== END 2022-10-15 14:15 | DRG 853 ==
LOC: ER 17:49 → EDBD 17:49 → TELE 19:40 → ICU WEST 20:10 → TELE-WESTW 10-06 21:33
PROVIDERS: ADMIT Internal Medicine; ATTEND Internal Medicine
PROC: 027036Z Dilation of Coronary Artery, One Artery with Three Drug-eluting Intraluminal Devices, Percutaneous Approach (ICD-10-PCS; principal; 2022-09-28)
PROC: 4A023N7 Measurement of Cardiac Sampling and Pressure, Left Heart, Percutaneous Approach (ICD-10-PCS; 2022-09-28)
PROC: B211YZZ Fluoroscopy of Multiple Coronary Arteries using Other Contrast (ICD-10-PCS; 2022-09-28)
PROC: B215YZZ Fluoroscopy of Left Heart using Other Contrast (ICD-10-PCS; 2022-09-28)
PROC: B310YZZ Fluoroscopy of Thoracic Aorta using Other Contrast (ICD-10-PCS; 2022-09-28)
PROC: 4A033BC Measurement of Arterial Pressure, Coronary, Percutaneous Approach (ICD-10-PCS; 2022-09-28)
PROC: 05HM33Z Insertion of Infusion Device into Right Internal Jugular Vein, Percutaneous Approach (ICD-10-PCS; 2022-09-28)
PROC: 5A12012 Performance of Cardiac Output, Single, Manual (ICD-10-PCS; 2022-09-28)
PROC: 5A1945Z Respiratory Ventilation, 24-96 Consecutive Hours (ICD-10-PCS; 2022-09-28)
PROC: 0BH17EZ Insertion of Endotracheal Airway into Trachea, Via Natural or Artificial Opening (ICD-10-PCS; 2022-09-28)
PROC: 027034Z Dilation of Coronary Artery, One Artery with Drug-eluting Intraluminal Device, Percutaneous Approach (ICD-10-PCS; 2022-10-01)
PROC: 4A023N7 Measurement of Cardiac Sampling and Pressure, Left Heart, Percutaneous Approach (ICD-10-PCS; 2022-10-01)
PROC: B211YZZ Fluoroscopy of Multiple Coronary Arteries using Other Contrast (ICD-10-PCS; 2022-10-01)
PROC: B215YZZ Fluoroscopy of Left Heart using Other Contrast (ICD-10-PCS; 2022-10-01)
DX: A41.1 Sepsis due to other specified staphylococcus (principal); G92.8 Other toxic encephalopathy; J69.0 Pneumonitis due to inhalation of food and vomit; J96.01 Acute respiratory failure with hypoxia; I21.21 ST elevation (STEMI) myocardial infarction involving left circumflex coronary artery; I46.9 Cardiac arrest, cause unspecified; R65.21 Severe sepsis with septic shock; E87.0 Hyperosmolality and hypernatremia; I51.81 Takotsubo syndrome; J98.11 Atelectasis; I10 Essential (primary) hypertension; K76.82 Hepatic encephalopathy; E87.70 Fluid overload, unspecified; E78.5 Hyperlipidemia, unspecified; I25.10 Atherosclerotic heart disease of native coronary artery without angina pectoris; E11.51 Type 2 diabetes mellitus with diabetic peripheral angiopathy without gangrene; S01.01XA Laceration without foreign body of scalp, initial encounter; W18.39XA Other fall on same level, initial encounter; Y93.89 Activity, other specified; Y92.89 Other specified places as the place of occurrence of the external cause; I25.2 Old myocardial infarction; Y99.8 Other external cause status; Z79.01 Long term (current) use of anticoagulants; Z82.49 Family history of ischemic heart disease and other diseases of the circulatory system; Z83.3 Family history of diabetes mellitus; Z88.5 Allergy status to narcotic agent; Z91.041 Radiographic dye allergy status
CPT/HCPCS: 36415; 36556; 36600; 70450; 70551; 71045; 71250; 72125; 74176; 80048; 80053; 80061; 80202; 80307; 81001; 82565; 82607; 82746; 82805; 82962; 83036; 83605; 83615; 83735; 83880; 84443; 84484; 85007; 85025; 85027; 85610; 85730; 86850; 86900; 86901; 87040; 87045; 87070; 87077; 87081; 87086; 87186; 87205; 87427; 87493; 92610; 93005; 93306; 93925; 93970; 94002; 94003; 94640; 95819; 97110; 97116; 97163; 97530; 99152; 99153; 99291; A4565; C1874; C1887; C9113; G0378; J0692; J0696; J1815; J2001; J2185; J2250; J2405; J3480; J3490; J7060; Q9956; Q9967